=== PATIENT | male | born 1945 | race Caucasian/White ===

== ENCOUNTER 2018-03-26 14:36 | Outpatient (CLI) | payer MEDICARE, MEDICAID ==
[~2018-03-26 14:36] MED LIST: POLY17PO10 PO; SENN-161 PO
== END 2018-03-26 23:59 | disposition home or self-care (01) ==
LOC: RAD 14:36
PROVIDERS: ATTEND Internal Medicine Gastroenterology
DX: R13.14 Dysphagia, pharyngoesophageal phase (principal); K21.9 Gastro-esophageal reflux disease without esophagitis; K22.4 Dyskinesia of esophagus; Z87.891 Personal history of nicotine dependence
CPT/HCPCS: 74230

== ENCOUNTER 2019-03-17 08:13 | Outpatient (CLI) | payer MEDICARE, MEDICAID ==
[~2019-03-17 08:13] MED LIST changes: -SENN-161 PO; +SENN-162 PO
== END 2019-03-17 23:59 | disposition home or self-care (01) ==
LOC: VAS 08:13
PROVIDERS: ATTEND Nurse Practitioner
DX: M79.661 Pain in right lower leg (principal); Z87.891 Personal history of nicotine dependence
CPT/HCPCS: 93971

== ENCOUNTER 2022-05-30 22:02 | Emergency (ER) | payer MEDICARE, MEDICAID ==
[~2022-05-30] VITALS: Ht 180.3 cm; Wt 75.8 kg
[~2022-05-30 22:02] MED LIST changes: +AMIO200T67 PO; +ATOR10TA PO; +CHOL10006 PO; +CLOP75TA34 PO; +CYCL-1 PO; +FLUO15OI2 TP; +GABA300C PO; +HYDR-3972 PO; +LOP25T PO; -POLY17PO10 PO; -SENN-162 PO; +SENN-283 PO
[2022-05-31] MEDS ORDERED: HYDROcodone/acetaminophen 10/325mg tab PO ONE (00:20)
[2022-05-31 00:42] VITALS: BP 155/83
[2022-05-31] MEDS ORDERED: LIDOcaine 1% 30ml preserv. free vial IJ ONE (01:00)
[2022-05-31] MEDS ORDERED: triamcinolone acetonide 40mg/ml inj IJ ONE (01:00)
[2022-05-31] MEDS ORDERED: HYDR-3965 PO (01:55)
== END 2022-05-31 02:12 | disposition home or self-care (01) ==
LOC: ER 22:02
DX: M75.31 Calcific tendinitis of right shoulder (principal); E78.00 Pure hypercholesterolemia, unspecified; G89.29 Other chronic pain; M54.50 Low back pain, unspecified; Z88.6 Allergy status to analgesic agent; Z88.8 Allergy status to other drugs, medicaments and biological substances; Z88.5 Allergy status to narcotic agent
CPT/HCPCS: 20552; 73030; 99284; A6449

== ENCOUNTER 2022-08-04 09:39 | Emergency (ER) | payer MEDICARE, MEDICAID ==
[~2022-08-04] VITALS: Ht 180.3 cm; Wt 72.8 kg
[~2022-08-04 09:39] MED LIST changes: +HYDR-3965 PO
[2022-08-04] MEDS ORDERED: diazepam 5mg tablet PO ONE (10:15)
[2022-08-04 10:56] VITALS: BP 130/84
[2022-08-04] MEDS ORDERED: morphine 4 MG/ML inj SYRINge IM ONE (11:05)
[2022-08-04] MEDS ORDERED: ondansetron 4mg rapidly disintigrating tab PO ONE (11:05)
[2022-08-04] MEDS ORDERED: ORPH100T4 PO (11:39)
== END 2022-08-04 11:55 | disposition home or self-care (01) ==
LOC: ER 09:40
DX: S16.1XXA Strain of muscle, fascia and tendon at neck level, initial encounter (principal); I50.9 Heart failure, unspecified; E78.00 Pure hypercholesterolemia, unspecified; G89.29 Other chronic pain; M54.9 Dorsalgia, unspecified; Z88.6 Allergy status to analgesic agent; Z88.1 Allergy status to other antibiotic agents; Z88.8 Allergy status to other drugs, medicaments and biological substances; Z79.899 Other long term (current) drug therapy; Z79.1 Long term (current) use of non-steroidal anti-inflammatories (NSAID); Z79.2 Long term (current) use of antibiotics; X58.XXXA Exposure to other specified factors, initial encounter; Y93.89 Activity, other specified; Y92.89 Other specified places as the place of occurrence of the external cause; Y99.8 Other external cause status
CPT/HCPCS: 96372; 99283; J2270